=== PATIENT | female | born 1945 | race Caucasian/White ===

== ENCOUNTER → 2016-11-01 | Outpatient (CLI) | payer BC | LOC: FIMAGING 10:20 | DX: Z12.31 Encounter for screening mammogram for malignant neoplasm of breast (principal) | CPT/HCPCS: G0202 ==

== ENCOUNTER → 2016-11-12 | Outpatient (CLI) | payer BC | LOC: FIMAGING 09:04 | PROVIDERS: ATTEND Internal Medicine | DX: Z12.39 Encounter for other screening for malignant neoplasm of breast (principal); R92.2 Inconclusive mammogram | CPT/HCPCS: G0206 ==

== ENCOUNTER → 2017-05-29 | Outpatient (CLI) | payer BC | LOC: BMCIMAGING 09:54 | PROVIDERS: ATTEND Physician Assistant | DX: M17.11 Unilateral primary osteoarthritis, right knee (principal); M16.11 Unilateral primary osteoarthritis, right hip ==

== ENCOUNTER → 2017-06-11 | Outpatient (CLI) | payer BC | LOC: BMCIMAGING 15:20 | PROVIDERS: ATTEND Internal Medicine | DX: M47.817 Spondylosis without myelopathy or radiculopathy, lumbosacral region (principal); M43.17 Spondylolisthesis, lumbosacral region; M46.97 Unspecified inflammatory spondylopathy, lumbosacral region; M16.0 Bilateral primary osteoarthritis of hip ==

== ENCOUNTER 2017-10-12 05:39 | Inpatient (IN) | payer OTHER, BC ==
--- NOTE | 2017-10-11 16:15 | GHP ---
[f rep st] PREOP HISTORY AND PHYSICAL DATE OF ADMISSION: 10/12/2017 HISTORY: The patient is a 72-year-old female who presents with right hip pain. She has decreased mo tion. She has pain with weightbearing that alters her gait and impacts her activities of daily livin g. She has tried appropriate conservative measures. Her x-rays show significant arthritis with rebecca le joint space remaining, consistent with arthritis. A right total hip arthroplasty is planned. PAST MEDICAL HISTORY: No current medical problems. PAST SURGICAL HISTORY: Her surgeries have been predominantly orthopedic, both knees, left shoulder, and right ankle, and a tonsillectomy. MEDICATIONS: She is taking no prescription medications. SOCIAL HISTORY: She is a nonsmoker. REVIEW OF SYSTEMS: Negative for cardiopulmonary disease. PHYSICAL EXAM: GENERAL: Well-developed, well-nourished female in no apparent distress. HEAD AND NE CK: Normocephalic, atraumatic. CHEST: Clear. CARDIOVASCULAR: Regular rate and rhythm. ABDOMEN: Soft. NEUROLOGIC: She is alert and oriented x3. MUSCULOSKELETAL: Examination of the right hip sh ows discomfort on hip flexion beyond about 90 degrees. Some discomfort with internal and external ro tation as well. X-RAYS: Right hip shows decreased joint space, subchondral sclerosis, consistent with hip arthritis. IMPRESSION: Right hip osteoarthritis. PLAN: Right total hip arthroplasty. Benefits and risks of surgery have been reviewed. She has sign ed a consent form, wishes to proceed. /[id number]/MODL
[2017-10-12] MEDS ORDERED: POVIDONE-IODINE 20 ML in SODIUM CL IRRIG SOLUTION 500 ML IRR ONE (06:00)
[2017-10-12] MEDS ORDERED: TRANEXAMIC ACID 1,000 MG in NS (SYRINGE) 50 ML IV ONE (06:00)
[2017-10-12] MEDS ORDERED: ROPIVACAINE 0.2% 80 MG, EPINEPHrine 0.2 MG, KETOROLAC TROMETHAMINE 30 MG in SYRINGE 0 ML IU ONE (06:00)
[2017-10-12] MEDS ORDERED: BUPI/epINEPH/KETOROLAC IU ONE (06:00)
[2017-10-12] MEDS ORDERED: FAMOTIDINE 20 MG TAB PO ONE (06:28)
[2017-10-12] MEDS ORDERED: ACETAMINOPHEN 325 MG TAB PO ONE (06:28)
[2017-10-12] MEDS ORDERED: GABAPENTIN 300 MG CAP PO ONE (06:28)
[2017-10-12] MEDS ORDERED: ceFAZolin 2 GM/SWFI 2 GM/20 ML SYR IVP ONE (06:28)
[2017-10-12] MEDS ORDERED: DEXAMETHASONE 4 MG/ML VIAL IVP ONE (06:28)
[2017-10-12] MEDS ORDERED: LR 1,000 ML IV ONE (06:30)
[2017-10-12] MEDS ORDERED: MIDAZOLAM 2 MG/2 ML VIAL IVP ONE (06:51)
--- NOTE | 2017-10-12 06:53 | PDANEPAE ---
ANE History of Present Illness R HUBER ANE Past Medical History - Cardiovascular History Hx Hypertension: No Hx Arrhythmias: No Hx Chest Pain: No Hx Coronary Artery / Peripheral Vascular Disease: No Hx CHF / Valvular Disease: No Hx Palpitations: No Cardiovascular History Comment: CHILDHOOD MURMUR - Pulmonary History Hx COPD: No Hx Asthma/Reactive Airway Disease: No Hx Recent Upper Respiratory Infection: No Hx Oxygen in Use at Home: No Hx Sleep Apnea: No Sleep Apnea Screening Result - Last Documented: Negative - Neurologic History Hx Cerebrovascular Accident: No Hx Seizures: No Hx Dementia: No - Endocrine History Hx Diabetes: No - Renal History Hx Renal Disorders: No - Liver History Hx Hepatic Disorders: No - Neurological & Psychiatric Hx Hx Neurological and Psychiatric Disorders: No - Cancer History Hx Cancer: Yes Cancer History Comment: SQUAMOUS CELL REMOVED - Congenital Disorder History Hx Congenital Disorders: No - GI History Hx Gastrointestinal Disorders: No - Other Health History Other Health History: NONE - Chronic Pain History Chronic Pain: Yes (R HIP & R KNEE) - Surgical History Prior Surgeries: RTC L REPAIR. R KNEE SURG REPAIR. TONSILLECTOMY. R ANKLE ANE Review of Systems Review of systems is: negative Review of Systems: - Exercise capacity METS (RN): 5 METS ANE Patient History - Allergies Allergies/Adverse Reactions: No Known Allergies Allergy (Unverified 09/22/17 11:46) - Home Medications Home medications: home medication list seen and reviewed Home Medications: Carboxymethylcellulose 1% [Refresh Celluvisc (*)] 1 drop EACHEYE DAILY PRN 09/22 [Last Taken 10/12/17] Herbals/Supplements -Info Only 1 ea PO DAILY 09/22/17 [Last Taken 10/05/17] Ibuprofen [Motrin (*)] 600 mg PO DAILY PRN 09/22/17 [Last Taken 10/05/17] Multivitamins [Multivitamin (*)] 1 each PO DAILY 09/22/17 [Last Taken 10/05/17] - NPO status NPO Since - Liquids (Date): 10/12/17 NPO Since - Liquids (Time): 03:15 NPO Since - Solids (Date): 10/11/17 NPO Since - Solids (Time): 20:00 - Anes Hx Anes Hx: no prior problems - Smoking Hx Smoking Status: Former smoker - Family Anes Hx Family Anes Hx: none Family Hx Anesthesia Complications: NEG ANE Labs/Vital Signs - Vital Signs Blood Pressure: 113/72 Heart Rate: 70 Respiratory Rate: 16 O2 Sat (%): 98 Height: 164.47 cm Weight: 46.72 kg ANE Physical Exam - Airway Neck exam: FROM Mallampati Score: Class 1 - Pulmonary Pulmonary: no respiratory distress - Cardiovascular Cardiovascular: regular rate and rhythym - ASA Status ASA Status: I ANE Anesthesia Plan Anesthesia Plan: MAC, spinal
[2017-10-12] MEDS ORDERED: ceFAZolin 1 GM/5 ML SYR ONE (06:55)
[2017-10-12] MEDS ORDERED: PROPOFOL 200 MG/20 ML VIAL ONE ×2 (07:15→08:18)
[2017-10-12] MEDS ORDERED: LIDOCAINE 2% 100 MG/5 ML SYR ONE (07:15)
--- NOTE | 2017-10-12 07:16 | PDHPUP ---
History & Physical Update H&P update statement: This history and physical update is based on an assessment of the patient which was completed after admission or registration (within 24 hours), but prior to the surgery/procedure. H&P update: H&P reviewed & patient examined (no change)
[2017-10-12] MEDS ORDERED: PHENYLEPHRINE HCL 100 MCG/ML SYR ONE (07:46)
[2017-10-12] MEDS ORDERED: DEXAMETHASONE 4 MG/ML VIAL IVP PRN (08:03)
[2017-10-12] MEDS ORDERED: NALOXONE HCL 0.4 MG/ML INJ IVP PRN (08:03)
[2017-10-12] MEDS ORDERED: oxyCODONE IR 5 MG TAB PO PRN ×2 (08:03→09:37)
[2017-10-12] MEDS ORDERED: ONDANSETRON 4 MG/2 ML VIAL IVP PRN ×2 (08:03→09:37)
[2017-10-12] MEDS ORDERED: HYDROmorphONE/DILAUDID 1 MG/ML INJ IVP PRN (08:03)
[2017-10-12] MEDS ORDERED: HYDROCODONE/APAP 5/325 TAB PO PRN (08:03)
[2017-10-12] MEDS ORDERED: MEPERIDINE 25 MG/ML SYR IVP PRN (08:03)
[2017-10-12] MEDS ORDERED: ACETAMINOPHEN 500 MG TAB PO PRN (08:03)
[2017-10-12] MEDS ORDERED: fentaNYL 100 MCG/2 ML INJ IVP PRN (08:03)
--- NOTE | 2017-10-12 08:05 | POSTANESTH ---
Post Anesthetic Evaluation Cardiovascular Status: Normal, Stable, Similar to Pre-Op Cond Respiratory Status: Normal, Stable, Similar to Pre-op Cond. Level of Consciousness/Mental Status: Can Participate in Eval, Mildly Sleepy, Arousable Pain Control: Adequate, Prn Tx Ordered Nausea/Vomiting Control: Adequate, Prn Tx Ordered Complications Possibly Related to Anesthesia: None Noted
[2017-10-12] MEDS ORDERED: PHENYLEPHRINE 10 MG/ML SDV ONE (08:34)
[2017-10-12] MEDS ORDERED: MAGNESIUM HYDROXIDE 30 ML UDCUP PO PRN (09:37)
[2017-10-12] MEDS ORDERED: CYCLOBENZAPRINE 10 MG TAB PO PRN (09:37)
[2017-10-12] MEDS ORDERED: TEMAZEPAM 15 MG CAP PO PRN (09:37)
[2017-10-12] MEDS ORDERED: LACTULOSE 20 GM/30 ML UDCUP PO PRN (09:37)
[2017-10-12] MEDS ORDERED: KETOROLAC 30 MG/1 ML SDV IVP PRN (09:37)
[2017-10-12] MEDS ORDERED: POLYETHYLENE GLYCOL 3350 17 GM PKT PO PRN (09:37)
[2017-10-12] MEDS ORDERED: ONDANSETRON DISINTEGRATING 4 MG TAB PO PRN (09:37)
[2017-10-12] MEDS ORDERED: PROMETHAZINE HCL 25 MG/ML INJ IVP PRN (09:37)
[2017-10-12] MEDS ORDERED: diphenhydrAMINE 25 MG CAP PO PRN (09:37)
[2017-10-12] MEDS ORDERED: DIPHENOXYLATE/ATROPINE LOMOTIL 1 TAB PO PRN (09:37)
[2017-10-12] MEDS ORDERED: PROMETHAZINE HCL 25 MG SUPPR PR PRN (09:37)
[2017-10-12] MEDS ORDERED: BISACODYL 10 MG SUPP PR PRN (09:37)
[2017-10-12] MEDS ORDERED: METOCLOPRAMIDE 10 MG/2 ML VIAL IVP PRN (09:37)
[2017-10-12] MEDS ORDERED: CARBOXYMETHYLCELLULOSE 1% 0.4 ML DROPERETTE EACHEYE PRN (09:40)
[2017-10-12] MEDS ORDERED: LR 1,000 ML IV SCH (10:00)
[2017-10-12] MEDS ORDERED: ACETAMINOPHEN 500 MG TAB ONE (10:02)
[2017-10-12] MEDS ORDERED: ONDANSETRON 4 MG/2 ML VIAL ONE (10:02)
--- NOTE | 2017-10-12 11:18 | GOP ---
[f rep st] OPERATIVE REPORT DATE OF OPERATION: SURGEON: Som Davis MD MOTOR PATROL OPERATOR: MEGAN Portillo, A ANESTHESIOLOGIST: Ishmael Baugh MD. PREOPERATIVE DIAGNOSIS: Right hip osteoarthritis. POSTOPERATIVE DIAGNOSIS: Right hip osteoarthritis. PROCEDURE PERFORMED: Right total hip arthroplasty. FINDINGS: SPECIMENS: Included the excised femoral head. ESTIMATED BLOOD LOSS: Less than 50 cc. INDICATIONS: The patient is a 72-year-old female who presents with history, exam, and x-rays all con sistent with advanced right hip osteoarthritis, decreased joint space, subchondral sclerosis. She brandt s pain, limited motion, and gait abnormalities. A right total hip arthroplasty is planned. DESCRIPTION OF PROCEDURE: The patient was taken to the operating room, and a spinal block was provid ed by Dr. Baugh. She received some IV sedation. She was rolled onto her left side on a pegboard and her torso and pelvis well supported by the anterior and posterior pegs. All bony prominences wer e well padded. We used an axillary roll. She received 2 g of IV Ancef, 1 g of tranexamic acid. The right hip and lower extremity were prepped and draped free in the usual fashion. We used chlorhexid ine prep. I used a posterior approach to the hip with a gently curving incision over the posterior a spect of the greater trochanter. Dissection was carried down to subcutaneous tissue. I incised thro ugh the IT band fascia, carried this through the trochanteric bursa into the fascia of the gluteus, s plit the fibers of the gluteus bluntly exposing the external rotators. I released and tagged the pir iformis and the more distal external rotators, opened the joint capsule. The sciatic nerve was prote cted throughout. I placed a pin above the acetabulum and a pin in the trochanter for a predislocatio n leg length measurement. The hip was gently dislocated. I used a neck cutting guide to make a neck cut. I used anterior and posterior acetabular retractors and resected degenerative labrum. I deepe silva the acetabulum with a 46 reamer and reamed successively up to 49 mm. I used a 50 mm Regenerex li mited hole cup that was hammered into place as a press-fit in about 20-25 degrees of anteversion and 40 degrees opening angle. This was a good press-fit and did not require screws. I placed a trial li ner. On the femoral side, I gained access to the canal with an awl and a lateralizing reamer. I use d Taperloc standard broaches reaming from a 4 up to a size 9. I press-fit a 9 mm Taperloc complete s tandard offset stem in appropriate anteversion. I used a Max-Rom +3 vitamin E infused acetabular anika er. After trial reductions, I used a standard neck 32 mm Biolox ceramic head. The hip had excellent stability in flexion, adduction, and internal rotation. I lengthened her slightly as per plan. Ant ibiotic irrigation was used as well as a Betadine rinse. I drilled 2 holes in the posterior aspect o f the trochanter, and I threaded the sutures in the capsule and the short rotators through these hole s to do a posterior repair, and this nicely brought the soft tissues into a repaired capsule and exte rnal rotator anatomic insertion. I closed the IT band fascia and the gluteal fascia with interrupted 0 Mersilene. Subcutaneous tissue was closed in layers with Monocryl and the skin with a running Kush l suture reinforced with glue, Telfa, and a Tegaderm. COMPLICATIONS: There were no complications. DRAINS: No drains. COUNTS: All counts were correct. DISPOSITION: The patient was taken in stable condition to recovery. My director medical surgical was a medical necessity for this total hip replacement. SUMMARY OF COMPONENTS: This is a Biomet hip system, all press-fit. The acetabulum is a 50 mm Regene gena limited hole cup, the liner is an E1 3 mm Max-Rom liner, the stem is a Taperloc complete standard offset 9 mm stem with a 32 mm ceramic head. /[id number]/MODL
[2017-10-12] MEDS: ACETAMINOPHEN 325 MG TAB PO SCH ×2 (12:57→17:27)
--- NOTE | 2017-10-12 13:44 | PDMN ---
Medical Necessity Medical necessity: [facility] IP only surgery; cpt 83017 R HUBER
[2017-10-12] MEDS ORDERED: ceFAZolin 2 GM/DEXTROSE 100 ML IV SCH (14:00)
[2017-10-12] MEDS: ceFAZolin 2 GM/SWFI 2 GM/20 ML SYR IVP SCH ×2 (14:57→20:32)
[2017-10-12] MEDS: ASPIRIN 325 MG TAB PO SCH (20:33)
[2017-10-12] MEDS: SENNOSIDES/DOCUSATE SODIUM TAB PO SCH (20:33)
[2017-10-12] MEDS: FAMOTIDINE 20 MG TAB PO SCH (20:33)
[2017-10-13] MEDS: ACETAMINOPHEN 325 MG TAB PO SCH ×4 (00:47→17:48)
--- NOTE | 2017-10-13 07:39 | SOAPPROG ---
SOAP Progress Note Assessment/Plan: Assessment: 10/13/17 POD#1 R HUBER, pain controlled, Hct 39, dressing dry Plan: 10/13/17 07:36 PT/OT, mobilize, lives alone, rehab stay Objective: Vital Signs Temp Pulse Resp BP Pulse Ox 36.6 C 54 L 16 99/64 L 98 10/13/17 03:45 10/13/17 05:45 10/13/17 05:45 10/13/17 05:45 10/13/17 05:45 Laboratory Results 10/13/17 04:43 10/12/17 10/13/17 10/14/17 05:59 05:59 05:59 Intake Total 2375 1125 Output Total 2600 Balance -225 1125 ICD10 Worksheet Patient Problems: Problems Problem Status Onset Osteoarthritis of right hip Acute - ICD10 Problem Qualifiers (1) Osteoarthritis of right hip
[2017-10-13] MEDS ORDERED: Herbals/Supplements -Info Only PO SCH (09:00)
[2017-10-13] MEDS: FAMOTIDINE 20 MG TAB PO SCH ×2 (09:01→19:48)
[2017-10-13] MEDS: SENNOSIDES/DOCUSATE SODIUM TAB PO SCH ×2 (09:01→19:48)
[2017-10-13] MEDS: ASPIRIN 325 MG TAB PO SCH (09:01)
[2017-10-13] MEDS: MULTIVITAMINS 1 EACH TAB PO SCH (09:01)
--- NOTE | 2017-10-13 16:05 | ASMTCMCOM ---
CM Note CM Note Notes: Pt s/p R total hip. OT rec home vs. home health care vs. SNF, PT rec SNF. Pt interested in SNF, requests referrals to [facility] and [facility]. Pt is accepted at both facilities. Pt primary payer source is Medicare. CM to follow. Date Signed: 10/13/2017 04:04 PM Electronically Signed By:ALO West
[2017-10-14] MEDS: ACETAMINOPHEN 325 MG TAB PO SCH ×3 (00:10→13:02)
[2017-10-14] MEDS: ASPIRIN 325 MG TAB PO SCH (11:01)
[2017-10-14] MEDS: MULTIVITAMINS 1 EACH TAB PO SCH (11:02)
[2017-10-14] MEDS: SENNOSIDES/DOCUSATE SODIUM TAB PO SCH (11:02)
[2017-10-14] MEDS: FAMOTIDINE 20 MG TAB PO SCH (11:02)
--- NOTE | 2017-10-14 11:55 | PDIAF ---
- Diagnosis Diagnosis: R hip OA Code Status: Full Code - Medication Management Discharge Medications: Medications to Continue on Transfer Carboxymethylcellulose 1% [Refresh Celluvisc (*)] 1 drop EACHEYE DAILY PRN 09/22 [Last Taken 10/12/17] Herbals/Supplements -Info Only 1 ea PO DAILY 09/22/17 [Last Taken 10/05/17] Multivitamins [Multivitamin (*)] 1 each PO DAILY 09/22/17 [Last Taken 10/05/17] Acetaminophen [Tylenol 325mg (*)] 650 mg PO Q6HRS tab 10/14/17 [Last Taken Unknown] Aspirin [Aspirin 325 mg (*)] 325 mg PO DAILY tab 10/14/17 [Last Taken Unknown] Sennosides/Docusate Sodium [Senokot-S] 1 - 2 tab PO BID tab 10/14/17 [Last Taken Unknown] celeCOXIB [Celebrex (*)] 200 mg PO DAILY cap 10/14/17 [Last Taken Unknown] oxyCODONE IR [Oxycodone Ir (*)] 5 - 10 mg PO Q3HRS PRN tab 10/14/17 [Last Taken Unknown] Discharge Medications: Refer to the Discharge Home Medication list for PRN reason. - Orders Services needed: Home Care, Physical Therapy Home Care Face to Face: I certify that this patient was under my care and that I had the required [id number] encounter meeting the encounter requirements on the discharge day. My findings support the fact that the patient is homebound as defined in Home Care Face to Face Continued: CMS Chapter 7 Medicare Benefits Manual 30.1.1 , The condition of the patient is such that there exists a normal inability to leave home and consequently, leaving home would require a considerable and taxing effort. Diet Recommendation: no restrictions on diet Diet Texture: Regular Texture Diet Arias: Not applicable Sammy Stockings Discontinue Date: as directed Wound Care Instructions: keep clean and dry. Activity/Weight Bearing Restrictions: as directed. No hip flexion past 90 degrees x 6 weeks. - Follow Up Care Current Providers and Referrals: Ary Sanches MD [Primary Care Provider] - Som Davis MD [Medical Doctor] - follow up as scheduled (follow up in 3 weeks as scheduled)
[2017-10-14 11:56] VITALS: BP 98/68
--- NOTE | 2017-10-14 14:08 | ASMTCMCOM ---
CM Note CM Note Notes: Today OT rec home vs. home care, PT rec home/outpatient. Pt wants to d/c home today, declines HHC. No CM d/c needs identified. Date Signed: 10/14/2017 02:07 PM Electronically Signed By:ALO West
--- NOTE | 2017-10-14 14:08 | ASDISCHSUM ---
Discharge Information Plan Status:Home with No Needs Medically Cleared to Leave: Discharge Date:10/14/2017 02:03 PM CM D/C Disposition:Home, Routine, Self-Care ADT D/C Disposition:[id number] Projected Discharge Date:10/15/2017 11:00 AM Transportation at D/C: Discharge Delay Reason: Follow-Up Date:10/15/2017 11:00 AM Discharge Slot: Final Diagnosis: Placement Information Referral Type:*[facility]/SNF Referral ID:[id number] Provider Name: Address 1: Phone Number: Address 2: Fax Number: City: Selection Factors: State: Patient Contact Information Contact Name:RAHUL Relationship:Sister Address: Home Phone: City: [facility] Phone: [facility] Code: Email: Financial Information Financial Class:Medicare Primary Plan Desc:MEDICARE INPATIENT Primary Plan Number:[id number] Secondary Plan Desc:[place] [facility] Secondary Plan Number:[id number] Assessment Information [facility] CM Progress Note CM Note CM Note Notes: Pt s/p R total hip. OT rec home vs. home health care vs. SNF, PT rec SNF. Pt interested in SNF, requests referrals to [facility] and [facility]. Pt is accepted at both facilities. Pt primary payer source is Medicare. CM to follow. Date Signed: 10/13/2017 04:04 PM Electronically Signed By:ALO West [facility] CM Progress Note CM Note CM Note Notes: Today OT rec home vs. home care, PT rec home/outpatient. Pt wants to d/c home today, declines [facility]. No CM d/c needs identified. Date Signed: 10/14/2017 02:07 PM Electronically Signed By:ALO West Intervention Information Intervention Type:*IM-Signed Date of Service:10/14/2017 12:18 PM Patient Type:Inpatient Staff Member:Michelle Caceres Hours: Discipline: Severity: Comment:
== END 2017-10-14 14:03 | disposition home or self-care (01) | DRG 470 ==
LOC: F3N 05:39
PROVIDERS: ADMIT Orthopaedic Surgery; ATTEND Orthopaedic Surgery
PROC: 0SR904Z Replacement of Right Hip Joint with Ceramic on Polyethylene Synthetic Substitute, Open Approach (ICD-10-PCS; principal; 2017-10-12 07:15)
DX: M16.11 Unilateral primary osteoarthritis, right hip (principal)
CPT/HCPCS: 97116-GP; 97161-GP; 97165-GO; 97530-GO; 97530-GP; 97535-GO; G8978-GP-CJ; G8979-GP-CI; G8980-GP-CI; G8987-GO-CI; G8987-GO-CJ; G8988-GO-CI; G8989-GO-CI; J0171; J0690; J1100; J1885; J2001; J2250; J2370; J2405; J2704; J2795

== ENCOUNTER → 2017-11-02 | Outpatient (CLI) | payer BC, OTHER | LOC: FIMAGING 09:51 | PROVIDERS: ATTEND Internal Medicine | DX: Z12.31 Encounter for screening mammogram for malignant neoplasm of breast (principal); Z80.3 Family history of malignant neoplasm of breast ==

== ENCOUNTER → 2018-11-08 | Outpatient (CLI) | payer BC, OTHER | LOC: FIMAGING 12:47 | PROVIDERS: ATTEND Internal Medicine | DX: Z12.31 Encounter for screening mammogram for malignant neoplasm of breast (principal); Z80.3 Family history of malignant neoplasm of breast ==

== ENCOUNTER 2018-12-13 05:38 | Inpatient (IN) | payer OTHER, BC | END 2018-12-14 16:40 | disposition home or self-care (01) | LOC: F3N 05:38 ==

== ENCOUNTER → 2018-12-15 | Outpatient (CLI) | payer BC, OTHER | LOC: FIMAGING 09:47 ==